=== PATIENT | male | born 1970 | race Caucasian/White ===

== ENCOUNTER 2019-07-24 07:41 | Day surgery (SDC) | payer OTHER, SELFPAY ==
--- NOTE | 2019-07-24 | PATH_ITS ---
[facility] Accession Number: [id number] . 01 Material submitted: . colon - FLAT POLYP AT 40 CM . 02 Diagnosis: Colon, Flat Polyp at 40 cm, Biopsy: Colonic mucosa with no significant diagnostic abnormality, consistent with polypoid redundancy. Additional levels were examined. Negative for dysplasia and malignancy. MRV 07/28/2019 1302 Local . 02 Electronically signed: . Mayi England MD, Pathologist NPI- [id number] . 01 Gross description: . FLAT POLYP AT 40 CM: Received in formalin is 1 fragment(s) of morales, soft tissue measuring 0.3 x 0.2 x 0.2 cm submitted entirely in 1 cassette(s) /QBJ 07/24/20195 Local . 02 Pathologist provided ICD-10: K63.5 . 02 CPT . 277555 Performed at: 01 [facility] [address] [facility], [place], [place] [id number] MD Malcolm Hidalgo MD Phone: [phone] Performed at: 02 [facility] [address] [place], [place] [id number] MD Mayi England MD Phone: [phone]
[2019-07-24] MEDS: SODIUM CHLORIDE 0.9% 1,000 ML 200 ML IV (07:58)
[2019-07-24 08:11] VITALS: BP 117/72; PULSE 66; RESP 18; TEMP 36; O2SAT 97; BMI 26.2
--- NOTE | 2019-07-24 08:15 | PM.HP.1 ---
History of Present Illness History of Present Illness Date Patient Seen: 07/24/19 Time Patient Seen: 08:21 Chief complaint: 07131 Narrative: This is a 49-year-old man with family history high risk for colon cancer, his father at age 55 with colon cancer. He has had some bleeding in the past, and had a colonoscopy 15 years ago for bleeding. He was told that there were no findings to explain his bleeding. For about the past year he has had some red blood in the toilet from time to time, but no melena. He denies any unexplained weight loss or unexplained abdominal pain. He is otherwise healthy, denies any heart or lung problems. He has had a history of Terry's thyroiditis, and a right inguinal hernia repair. Past medical history: Terry's thyroiditis Past surgical history: Inguinal hernia repair, prior colonoscopy, reportedly normal 15 years ago Social: , nonsmoker, no illicit drug Family history: Colon cancer in his mother, at age 55; type 2 diabetes his father, alive at age 82 Allergies: Denies Medications: Nature thyroid tablet 48.75 mg per day ROS Thirteen system review is otherwise negative other than as mentioned below and in HPI. PE: GENERAL: Well groomed and cooperative. Appears stated age. Answers questions promptly and appropriately. Vital signs noted. HENT: Normocephalic, atraumatic. Hearing intact. Oral mucosa is pink and moist. EYES: Conjunctiva pink, sclera white, no periorbital swelling. CARDIOVASCULAR: Regular rate. No pedal edema. RESPIRATORY: Non-tachypneic, breathing comfortably on room air. GASTROINTESTINAL: Abdomen soft and non-distended GENITALURINARY: No flank tenderness. MUSCULOSKELETAL: Equal tone and mass bilaterally. SKIN: Warm, dry, soft, appropriate color for ethnicity. No other lesions, rashes, or wounds. NEURO: Alert and Oriented X 3. No gross sensory deficits, or cognitive issues. PSYCH: Appropriate affect and mood. Meds Home Medications and Allergies Home Medications Medication Instructions Recorded Confirmed Type thyroid (pork) [Nature-Throid] 48.75 mg PO DAILY 07/24/19 07/24/19 History Allergies Allergy/AdvReac Type Severity Reaction Status Date / Time No Known Drug Allergies Allergy Verified 07/24/19 07:58 Assessment & Plan Assessment and plan (1) Family history of colon cancer: Current visit: Yes Status: Acute (2) Rectal bleeding: Current visit: Yes Status: Acute (3) Encounter for colonoscopy in patient with family history of colon cancer: Current visit: Yes Status: Acute Assessment & Plan narrative: This is a 49-year-old man with a high risk family history and rectal bleeding for the past year. Risks and benefits of screening colonoscopy and possible polypectomy were discussed with the patient including risk of bleeding, perforation, need for additional procedures, risks of anesthesia. The patient desires to proceed with the colonoscopy procedure. Time Spent With Patient Time with patient: 15-24 minutes Quality VTE Deep Vein Thrombosis/Pulmonary Embolism Present on Admission: No
[2019-07-24] MEDS: MIDAZOLAM 5 MG/5 ML VIAL IV (09:22)
[2019-07-24] MEDS: fentaNYL 250 MCG/5 ML INJ IV (09:22)
--- NOTE | 2019-07-24 09:31 | PM.OP.ENDO ---
Operative Date/Time/Diagnoses Date of procedure: 07/24/19 Time of procedure: 09:31 Pre-op diagnosis: High risk family history for colon cancer, rectal bleeding Post-op diagnosis: other (High risk family history for colon cancer, small polyps found at 40 cm, internal hemorrhoids, anal fissure) Procedure & Clinicians Study performed: Colonoscopy, polypectomy with cold forceps Same procedure as scheduled: Yes Indications: High risk family history, rectal bleeding Surgeon: Elle Lin Procedure Notes SCOAP/Timeout: Performed Procedure in detail: The patient was brought to the room and placed in left lateral decubitus position with all bony prominences padded. A time-out was performed and then the patient was given procedural sedation starting with 4 mg of Versed and 100 mcg of fentanyl. Total of 7 mg of Versed and 250 micro g of fentanyl were given for the entire procedure. Vitals were monitored throughout the procedure and remained stable. Once adequately sedated the procedure was begun. A rectal exam was performed revealing no abnormalities. The colonoscope was then introduced to the rectum and advanced to the cecum in the usual fashion. The cecum was identified by the appendiceal orifice, the mucosal tri-fold, and the ileocecal valve. The scope was then retracted while rotating side to side and examining each mucosal fold. A small flap mucosal abnormality was seen at 40 cm, and was removed with cold forceps. No other polyps or mucosal abnormalities were seen. At the conclusion of the procedure retroflexion was performed and moderate grade 2 internal hemorrhoids without stigmata of bleeding were seen. On the way out, a fissure was seen at the anal posterior midline anal verge, which was bleeding. The scope was then withdrawn from the rectum the procedure was concluded. The patient tolerated the procedure well and was transferred to the PACU in stable condition. Scope withdrawal time: 11 Sedation minutes: 29 Findings: internal hemorrhoids, polyp and other findings (Anal fissure) Specimen(s): other (Flat Polyp from 40 cm) Complications: none Impression: Normal colon, with 1 small flat polyp, which is probably benign. Significant internal hemorrhoids and an anal fissure, which are likely the source of his intermittent rectal bleeding. Post-procedure Recommendations: Colonscopy in 5 years (Due to family history, as long as biopsy results are non neoplastic) Plan for aftercare: Consider using a fiber supplement or stool softener to reduce bleeding from hemorrhoids. Consider using topical preparation H or Calmoseptine to help treat anal fissure and internal hemorrhoids. Follow up: as needed Disposition: PACU
[2019-07-24 09:40] VITALS: BP 101/64; PULSE 65; RESP 12; TEMP 36.6; O2SAT 96
[2019-07-24 09:45] VITALS: BP 113/65; PULSE 63; RESP 15; O2SAT 98
[2019-07-24 09:50] VITALS: BP 115/65; PULSE 71; RESP 10; O2SAT 97
[2019-07-24 09:54] VITALS: BP 120/82; PULSE 71; RESP 12; O2SAT 98
== END 2019-07-24 10:05 | disposition home or self-care (01) ==
PROVIDERS: Referring Provider Family Medicine; Visit Provider Surgery
PROC: 0DJD8ZZ Inspection of Lower Intestinal Tract, Via Natural or Artificial Opening Endoscopic (ICD-10-PCS; CPT 45378; principal; 2019-07-24 09:00)
DX: K62.5 Hemorrhage of anus and rectum (principal); Z80.0 Family history of malignant neoplasm of digestive organs; K64.1 Second degree hemorrhoids; K60.2 Anal fissure, unspecified; K63.5 Polyp of colon
CPT/HCPCS: 45380; 99152; 99153; J2250; J3010